=== PATIENT | male | born 1980 | race Caucasian/White ===

== ENCOUNTER 2017-02-07 16:18 | Emergency (ER) | payer BC ==
[2017-02-07 16:24] VITALS: BP 126/84
[2017-02-07] MEDS ORDERED: Albuterol HFA INHALER* 8 gm MDI INH ONE ×2 (18:44→18:45)
--- NOTE | 2017-02-07 18:44 | UC ---
Respiratory Complaint HPI - HPI Summary HPI Summary: cough for 2 weeks---deep with some sputum no fevers - History of Current Complaint Hx Obtained From: Patient Onset/Duration: Sudden Onset, Lasting Weeks - 2, Still Present Timing: Constant Severity Initially: Moderate Severity Currently: Moderate Character: Cough: Productive Aggravating Factors: Deep Breaths, Recumbent Position Alleviating Factors: Nothing Associated Signs And Symptoms: Positive: Chills, Pleuritic Chest Pain <Claudia Pool - Last Filed: 02/09/17 16:55> <Maddison Doty - Last Filed: 02/09/17 18:40> - History of Current Complaint Chief Complaint: UCRespiratory Stated Complaint: COUGH Time Seen by Provider: 02/07/17 18:36 - Allergies/Home Medications Allergies/Adverse Reactions: Allergies Allergy/AdvReac Type Severity Reaction Status Date / Time No Known Allergies Allergy Verified 12/21/14 13:35 PMH/Surg Hx/FS Hx/Imm Hx Previously Healthy: Yes - Surgical History Surgical History: Yes Surgery Procedure, Year, and Place: wisdom teeth, T&A - Family History Known Family History: Positive: None Family History: no cardiovascular issues reported in family lineage - Social History Occupation: Employed Full-time Lives: With Family Alcohol Use: Occasionally Substance Use Type: None Smoking Status (MU): Never Smoked Tobacco <Claudia Pool - Last Filed: 02/09/17 16:55> Review of Systems Constitutional: Negative Skin: Negative Eyes: Negative ENT: Negative Respiratory: Cough Cardiovascular: Negative Gastrointestinal: Negative Genitourinary: Negative Motor: Negative Neurovascular: Negative Musculoskeletal: Negative Neurological: Negative Psychological: Negative All Other Systems Reviewed And Are Negative: Yes <Claudia Pool - Last Filed: 02/09/17 16:55> Physical Exam Triage Information Reviewed: Yes Appearance: Well-Appearing, No Pain Distress, Well-Nourished Vital Signs: Initial Vital Signs Temp 98.7 F 02/07/17 16:21 Pulse 95 02/07/17 16:21 Resp 16 02/07/17 16:21 BP 126/84 02/07/17 16:21 Pulse Ox 100 02/07/17 16:21 Vital Signs Reviewed: Yes Eye Exam: Normal Eyes: Positive: Conjunctiva Clear ENT Exam: Normal ENT: Positive: Normal ENT inspection, Hearing grossly normal. Negative: Nasal congestion, Nasal drainage, Trismus, Muffled/hoarse voice Dental Exam: Normal Neck exam: Normal Neck: Positive: Supple, Nontender, No Lymphadenopathy Respiratory Exam: Normal Respiratory: Positive: Chest non-tender, No respiratory distress, No accessory muscle use, Wheezing Cardiovascular Exam: Normal Cardiovascular: Positive: RRR, No Murmur, Pulses Normal, Brisk Capillary Refill Musculoskeletal Exam: Normal Musculoskeletal: Positive: Strength Intact, ROM Intact, No Edema Neurological Exam: Normal Neurological: Positive: Alert, Muscle Tone Normal Psychological Exam: Normal Skin Exam: Normal <Claudia Pool - Last Filed: 02/09/17 16:55> Vital Signs: Initial Vital Signs Temp 98.7 F 02/07/17 16:21 Pulse 95 02/07/17 16:21 Resp 16 02/07/17 16:21 BP 126/84 02/07/17 16:21 Pulse Ox 100 02/07/17 16:21 <Maddison Doty - Last Filed: 02/09/17 18:40> UC Diagnostic Evaluation - Laboratory O2 Sat by Pulse Oximetry: 100 <Claudia Pool - Last Filed: 02/09/17 16:55> Respiratory Course/Dx - Course Course Of Treatment: aerochamber and albuterol, prednisone, if worsen or fails to improve mystart zithromax, follow with PCP Prn - Differential Dx/Diagnosis Differential Diagnosis/HQI/PQRI: Bronchitis, Exacerbation Of COPD, Lower Resp Infection, Sinusitis, Tuberculosis Provider Diagnoses: Bronchospasm, bronchitis <Claudia Pool - Last Filed: 02/09/17 16:55> Discharge <Claudia Pool - Last Filed: 02/09/17 16:55> <Maddison Doty - Last Filed: 02/09/17 18:40> - Discharge Plan Condition: Stable Disposition: HOME Prescriptions: Albuterol HFA INHALER* [Ventolin HFA Inhaler*] 2 puff INH Q6H PRN #1 mdi PRN Reason: cough/wheeze Azithromycin TAB* [Zithromax TAB (Z-ARMAAN) 250 mg #6 tabs] 2 tab PO .TODAY, THEN 1 DAILY #1 armaan predniSONE TAB* [Deltasone TAB*] 50 mg PO DAILY #5 tab Patient Education Materials: Acute Bronchitis (ED), Bronchospasm (ED), How to Use a Metered-Dose Inhaler and a Spacer (ED) Referrals: Javi Ortiz MD [Primary Care Provider] - If Needed Attestation Statement User Type: Provider - I was available for consult. This patient was seen by the [facility]. The patient was not presented to, seen by, or examined by me. -Armani <Maddison Doty - Last Filed: 02/09/17 18:40>
== END 2017-02-07 19:12 | disposition home or self-care (01) ==
LOC: UCEAST 16:18
DX: J20.9 Acute bronchitis, unspecified (principal)
CPT/HCPCS: 99212; A9270-GY; G0463